=== PATIENT | female | born 1955 | race Caucasian/White ===

== ENCOUNTER 2023-06-26 00:22 | Day surgery (SDC) | payer MEDICARE, OTHER, SELFPAY ==
--- NOTE | 2023-06-21 17:23 | PM.IMHP ---
H&P: HPI History of Present Illness Date/Time: 06/21/23 17:23 Chief Complaint: stress incontinence Narrative: 67-year-old female with stress incontinence and desires surgical correction Review of Systems Review of Systems: All systems reviewed & are unremarkable except as noted in HPI and below Exam Narrative: no acute distress normal breathing alert and orient x3 urethral mobility documented Assessment and Plan Assessment and plan (1) ROSHAN (stress urinary incontinence, female): Code(s): N39.3 - Stress incontinence (female) (male) Status: Acute Assessment and Plan: urethral sling. Risks, benefits, alternatives all documented in office chart
--- NOTE | 2023-06-22 10:12 | PC.NURSE ---
Report to the Outpatient Waiting Room, entrance under the green pavilion located off [facility], at time _0645 on date _06/26/23 . Planned Procedure Time: _0845 . Time changes happen often and if your time is changed the preop area will call you the afternoon before. - You and your visitor will be asked to self-screen and do not enter if you have any COVID symptoms. - A mask is optional within the hospital at this time. Patients may have clear liquids (water, carbonated beverages, clear teas, apple juice) until 3 hours prior to surgery( 0545) with a maximum of 20 ounces. - No food from midnight until time of surgery - Infants may have breast milk until 4 hours before surgery, formula 6 hours prior to surgery. - Children will be allowed to drink immediately following surgery. If applicable, please bring a bottle or sippy cup to assist with drinking. Juice, water, soda, and popsicles are readily available. For infants on formula, please bring formula the day of surgery. Pacifiers are allowed. Take the following medications with a SIP of water the morning of surgery: ___ARMOUR THYROID,DESVENLAFAXINE DO NOT STOP ANY OF YOUR OTHER PRESCRIPTION MEDICATIONS PRIOR TO SURGERY ?EXCEPT THE FOLLOWING Medications to discontinue per physician ___PLEASE HOLD ALL VITAMINS/SUPPLEMENTS/PROBIOTIC 3 DAYS PRE OP/LAST DOSE 06/22/23 HOLD OZEMPIC 10 DAYS PRE OP PER ANESTHESIA PT STATES LAST DOSE 06/19/23 Please no make-up, nail kyrgyz, hairspray, perfume, deodorant, or body powder the day of surgery. No jewelry (including any body piercings) or valuables the day of surgery, leave them at home. Please take a shower or bath the night before, or the morning of, surgery with an antibacterial soap. Wear comfortable, loose fitting clothing. Children are encouraged to wear pajamas. - Jewelry must be removed prior to entering the operating room. Rings and piercings that are not removed may be cut off. - The hospital will not accept responsibility for valuables. - Please leave all valuables, including medications, at home the day of surgery. If you are going home after surgery, a licensed stunt driver must drive you home. - NO public transportation without another adult if you receive anesthesia. - We recommend that an adult stay with you for 24 hours following discharge. - We also recommend that you do not drive, make important decision, drink alcoholic beverages, or take any drugs that were not prescribed by your health care provider for at least 24 hours after your discharge time. Follow any additional instructions given to you from your surgeon. If you or anyone in your household have experienced Covid symptoms in the past week, please notify your surgeon or the nurse liaison at the phone number below for possible testing. Telephone instructions given to __PATIENT and asked if any additional questions and then verbalized understanding. Patient advised to call surgeon office or pre surgery nurse liaison [phone] if any additional questions.
[2023-06-22 10:27] VITALS: BMI 32.3
--- NOTE | 2023-06-25 12:50 | WPDANESEPPF ---
Anes - Initial Pre Proc Eval Procedure: Operation Date: 06/26/23 08:45 Proposed Procedures p Urethral Sling - Maurice Cassidy MD Date/Time: 06/25/23 12:50 Surgeon: Maurice Cassidy MD Pre Op Diagnosis: stress incontinence Patient Data Age: 67 Gender: F Height: 1.5 m Weight: 72.6 kg Allergies Allergy/AdvReac Type Severity Reaction Status Date / Time Sulfa (Sulfonamide AdvReac Rash Verified 06/22/23 09:49 Antibiotics) Home Medications Medication Instructions Recorded Confirmed Type Lactobacillus 1 cap PO DAILY 06/22/23 06/22/23 History acidophilus-Bifidobac.animalis 2.5 billion cell capsule (Daily Probiotic) cetirizine 10 mg tablet (Zyrtec) 10 mg PO DAILY 06/22/23 06/22/23 History cholecalciferol (vitamin D3) 50 50 mcg PO DAILY 06/22/23 06/22/23 History mcg (2,000 unit) tablet cyclobenzaprine 10 mg tablet 10 mg PO PRN PRN Muscle Spasm 06/22/23 06/22/23 History desvenlafaxine succinate 100 mg 100 mg PO BID 06/22/23 06/22/23 History tablet,extended release 24 hr divalproex 250 mg tablet,extended 250 mg PO HS INSOMNIA 06/22/23 06/22/23 History release 24 hr fenofibrate 160 mg tablet 160 mg PO DAILY 06/22/23 06/22/23 History fluticasone propionate 50 1 spray intranasal BID 06/22/23 06/22/23 History mcg/actuation nasal spray,suspension lorazepam 1 mg tablet 1 mg PO HS 06/22/23 06/22/23 History magnesium 250 mg PO DAILY 06/22/23 06/22/23 History montelukast 10 mg tablet 10 mg PO QPM 06/22/23 06/22/23 History omeprazole 40 mg capsule,delayed 40 mg PO BID 06/22/23 06/22/23 History release semaglutide 1 mg/dose (4 mg/3 mL) 1 mg subcut WEEKLY WEIGHT LOSS 06/22/23 06/22/23 History subcutaneous pen injector (Ozempic) thyroid (pork) 120 mg tablet 120 mg PO DAILY 06/22/23 06/22/23 History ([place] Thyroid) Patient hx anesthesia problems: none Family hx anesthesia problems: none Results Review: All pre-operative results and documents have been reviewed as part of the pre-operative evaluation. [facility] Past Medical History Medical History (Updated 06/25/23 @ 12:53 by Carlos Chaudhary DO) Anxiety GERD (gastroesophageal reflux disease) Hypothyroidism Surgical History Surgical History (Updated 06/25/23 @ 12:53 by Carlos Chaudhary DO) History of breast augmentation History of cervical spinal surgery History of Chad fundoplication History of tubal ligation Social History Social History Smoking status: Never smoker Alcohol intake: current Drinks per week: 10 Alcohol use details: WINE Living arrangements: alone Spiritual care concerns: No Anes - Eval Final PreProcedure Day of Procedure 06/25/23 12:50 Patient weight: obese Heart: regular rate and rhythm Lungs: clear to auscultation Airway: Mallampati scale class II Neurological: alert and oriented Last oral intake: >/= 8 hours ASA classification: II Emergent: no Anesthetic plan: proceed Anesthesia type and monitoring: general ETT and standard monitoring Results Review: All pre-operative results and documents have been reviewed as part of the pre-operative evaluation. Informed Consent: The patient's anesthetic plan and its attendant risks and benefits were discussed with the patient/family/POA. Questions were solicited and answers provided to the satisfaction of the patient/family/POA.
[2023-06-26] VITALS (8 sets, daily range): BP systolic 105–127; BP diastolic 54–81; PULSE 90–107; RESP 16–20; TEMP 36.1–36.7; O2SAT 93–100; BMI 32.3
--- NOTE | 2023-06-26 04:36 | WPDHPUPDATE1 ---
History and Physical Update Update Date/Time: 06/26/23 04:36 History and Physical has been reviewed, including an updated exam of the patient. There are NO changes in the patient's condition. Risks, benefits, and alternatives have been discussed and questions answered. Patient agrees to proceed with procedure.
[2023-06-26] MEDS: LACTATED RINGERS 1,000 ML 30 ML IV CONT (07:43)
[2023-06-26] MEDS: ceFAZolin 2 GM/D5W 50 ML 2 GM/50 ML BAG IVPB (08:39)
[2023-06-26] MEDS: BUPIVACAINE/EPINEPHRINE 0.5% 30 ML VIAL 10 ML INFILTRATE (09:02)
--- NOTE | 2023-06-26 09:08 | W.PM.PROC2 ---
Procedure Note - Detailed Date of Procedure 06/26/23 Pre-op Diagnosis stress incontinence Post-op Diagnosis Same Procedure Performed mid urethral sling cystoscopy Surgeon Maurice Cassidy MD Anesthesia General Indications This is a female with confirm stress urinary incontinence. She desires surgical correction. She understands the risks of bleeding, infection, injury to the urinary tract, vaginal mesh extrusion, urinary tract mesh erosion, obstructive voiding requiring a secondary procedure, hip and leg pain, dyspareunia, inability to improve overactive bladder symptoms. She agrees to proceed. Description of Procedure She was correctly identified. Informed consent obtained. She was brought the operating room. She was given appropriate anesthesia. She was given appropriate perioperative antibiotics. A time-out performed. I marked out the site of the inner thigh incisions. I anesthetized the skin and made those incisions. I anesthetized the anterior vaginal wall over the mid urethra. I made a 1 cm incision. I dissected out laterally taking great care not to injure the refilled vaginal wall. I passed the helical trocars. First on the left. Then on the right. I did this from the thigh incision towards the vaginal incision. The sling was connected to the trocars and brought out through the thigh incision. I tensioned the sling appropriately. I cut and the plastic sheaths. I then closed the incision with 2 0 Vicryl. On cystoscopy there is no tumors or surgical artifact. There was no surgical artifact in the urethra. I cut the excess sling material. Close incisions with glue. She was awakened and transferred to the PACU in stable condition. Implants Urethral sling Drains No Packing No Pathology None sent Complications No immediate complications Condition Stable Disposition PACU
== END 2023-06-26 10:55 | disposition home or self-care (01) ==
PROVIDERS: Visit Provider Urology
PROC: (CPT 57288; principal; 2023-06-26 08:45)
DX: N39.3 Stress incontinence (female) (male) (principal); E03.9 Hypothyroidism, unspecified; K21.9 Gastro-esophageal reflux disease without esophagitis; F41.9 Anxiety disorder, unspecified; Z79.85 Long-term (current) use of injectable non-insulin antidiabetic drugs; E66.9 Obesity, unspecified; Z68.32 Body mass index [BMI] 32.0-32.9, adult
CPT/HCPCS: 57288; C1771; J0330; J0690; J1100; J2250; J2405; J2704; J3010; J7030; J7120